=== PATIENT | male | born 1990 | race Caucasian/White ===

== ENCOUNTER 2016-08-04 11:43 | Emergency (ER) | payer SELFPAY ==
[~2016-08-04 11:43] MED LIST: LOPE2 PO; ZOFR4TAB3 SL
[2016-08-04 11:45] VITALS: BP 126/82; PULSE 50; RESP 12; TEMP 98.1; O2SAT 100
--- NOTE | 2016-08-04 12:14 | PD ---
HPI Chief Complaint: Laceration/Skin Injury Time Seen by Provider: 12:13 Travel History International Travel<30 days: No Contact w/Intl Traveler<30days: No Traveled to known affect area: No History of Present Illness HPI 26-year-old male presents to the emergency department complaining of a laceration to the base of his right index finger that occurred yesterday at approximately noon from a metal stud. He is not up-to-date on his tetanus vaccination. He denies paresthesias, loss of sensation, decreased range of motion, decreased strength of his right hand. Denies fever, chills, nausea, vomiting. Applied pressure yesterday and bleeding is controlled. His girlfriend made him come in for evaluation to see if he needed stitches. No known allergies. No other modifying factors or associated signs and symptoms. [facility] Past Medical History ADD: Yes Social History Alcohol Use: Yes (OCC) Tobacco Use: Yes (1 PPD) Substance Use: No Allergies-Medications (Allergen,Severity, Reaction): Coded Allergies: No Known Allergies (Unverified , 08/04/16) Reported Meds & Prescriptions Reported Meds & Active Scripts Active No Active Prescriptions or Reported Medications Review of Systems Except as stated in HPI: all other systems reviewed are Neg Physical Exam Narrative GENERAL: Well-nourished, well-developed male patient, in no acute distress SKIN: Warm and dry. Approximately 1 cm superficial laceration over the right MCP joint; without erythema, edema, drainage. Right index finger with full range of motion, sensory intact, good opposition. Right upper extremity is supple and non-tense with 2+ radial pulse and sensory intact and without erythema or edema. HEAD: Atraumatic. Normocephalic. EYES: Pupils equal and round. No scleral icterus. No injection or drainage. ENT: Mucosa pink and moist. Airway patent. NECK: Trachea midline. CARDIOVASCULAR: Regular rate. RESPIRATORY: No accessory muscle use. GASTROINTESTINAL: Flat. MUSCULOSKELETAL: No obvious deformities. No clubbing. No cyanosis. No edema. NEUROLOGICAL: Awake and alert. Oriented 3. No obvious cranial nerve deficits. Motor grossly within normal limits. Normal speech. PSYCHIATRIC: Appropriate mood and affect; insight and judgment normal. Data Data Last Documented VS Vital Signs Date Time Temp Pulse Resp B/P Pulse Ox O2 Delivery O2 Flow Rate FiO2 08/04/16 11:45 98.1 50 12 126/82 100 Orders Wound Care (08/04/16 12:14) Tetanus/Diphtheria Tox Adult (Tetanus/Di (08/04/16 12:15) [facility] Medical Decision Making Medical Screen Exam Complete: Yes Emergency Medical Condition: Yes Medical Record Reviewed: Yes Differential Diagnosis Laceration, contusion, abrasion Narrative Course 26-year-old male with superficial laceration over the right index and MCP joint. Tetanus updated in the ER. See my procedure note for laceration repair. Patient verbalizes understanding and agreement with treatment plan. Patient is medically cleared and stable for discharge. Discussed reasons to return to the emergency department. Instructed patient to follow up with primary care provider. Patient agrees with treatment plan. The patients vital signs are stable and the patient is stable for outpatient follow-up and treatment. Patient discharged home, stable and in no acute distress. Procedures Procedure Narrative LACERATION LOCATION: over right MCP joint LENGTH: 1cm Dermabond was used to close the laceration REPAIR: The area of the laceration was prepped with normal saline. The wound was copiously irrigated and explored without evidence of foreign body, tendon injury or neurovascular injury. The wound was closed using Dermabond. This was a single layer repair. The patient was advised to keep the dressing clean and dry. Patient tolerated the procedure well. Diagnosis Primary Impression: Finger laceration Qualified Code: S61.219A - Finger laceration, initial encounter Referrals: Primary Care Physician Patient Instructions: Finger Laceration (ED), General Instructions Departure Forms: Tests/Procedures, Work Release Enter return to work date: Aug 05, 2016 Additional Instructions: Keep area clean and dry Ibuprofen or Tylenol as directed and as needed for pain and inflammation Follow-up with primary care provider Return to the emergency department immediately with worsening of symptoms Med/Other Pt SpecificInfo: No Meds Exist/No RX given Scripts No Active Prescriptions or Reported Meds Disposition: 01 DISCHARGE HOME Condition: Stable Adilene Tovar Aug 04, 2016 12:13
[2016-08-04] MEDS ORDERED: TETANUS/DIPHTHERIA TOXOID ADULT 0.5 ML VIAL IM ONE (12:15)
== END 2016-08-04 13:11 | disposition home or self-care (01) ==
LOC: NETRI 11:43
DX: S61.210A Laceration without foreign body of right index finger without damage to nail, initial encounter (principal); F17.200 Nicotine dependence, unspecified, uncomplicated; Z23 Encounter for immunization; Z86.59 Personal history of other mental and behavioral disorders; W22.8XXA Striking against or struck by other objects, initial encounter
CPT/HCPCS: 12001; 90471; 90714